=== PATIENT | male | born 1980 | race Hispanic/Latino ===

== ENCOUNTER 2023-12-15 13:12 | Emergency (ER) | payer BC, OTHER ==
[~2023-12-15] VITALS: Ht 182.9 cm; Wt 98.4 kg
[2023-12-15 15:24] LABS: APPEARANCE,URINE CLEAR (CLEAR); BILIRUBIN,URINE NEGATIVE (NEGATIVE); COLOR,URINE LIGHT-YELLOW (YELLOW); GLUCOSE, URINE (UA) NEGATIVE (NEGATIVE); KETONES,URINE NEGATIVE (NEGATIVE); LEUKOCYTE ESTERASE ,URINE NEGATIVE Leu/uL (NEGATIVE); NITRATE,URINE NEGATIVE (NEGATIVE); OCCULT BLOOD,URINE NEGATIVE (NEGATIVE); PH,URINE 5.5 (5.0-8.0); PROTEIN,URINE NEGATIVE (NEGATIVE); UROBILINOGEN,URINE 0.2 mg/dL (0.2-1.0)
[2023-12-15 15:28] LABS: ADD UA MICROSCOPIC NO
[2023-12-15 15:43] LABS: BASOPHILS # (AUTO) 0.06 K/uL (0.00-0.20); BASOPHILS % (AUTO) 0.9 % (0.0-5.0); EOSINOPHILS # (AUTO) 0.12 K/uL (0.00-0.70); EOSINOPHILS % (AUTO) 1.8 % (0.0-8.0); IMMATURE GRANULOCYTE ABSOLUTE 0.02 K/uL (0-1); LYMPHOCYTES # (AUTO) 2.5 K/uL (1.0-4.8); LYMPHOCYTES % (AUTO) 37.6 % (21.0-51.0); MEAN CORPUSCULAR HEMOGLOBIN 30.1 pg (27.0-33.0); MEAN CORPUSCULAR HGB CONC 35.7 g/dL (32.0-36.0); MEAN CORPUSCULAR VOLUME 84.2 fL (79-99); MONOCYTES # (AUTO) 0.6 K/uL (0.1-1.0); MONOCYTES % (AUTO) 9.4 % (3.0-13.0); NEUTROPHILS # (AUTO) 3.4 K/uL (1.8-7.7); PLATELET COUNT (AUTO) 297 K/uL (130-400); RED BLOOD CELL COUNT(AUTO) 5.58 MIL/uL (4.50-6.20); RED CELL DISTRIBUTION WIDTH 12.9 % (11.0-15.5); WHITE BLOOD COUNT (AUTO) 6.7 K/uL (4.8-10.8)
[2023-12-15 15:55] LABS: POTASSIUM 4.5 mmol/L (3.5-5.1)
[2023-12-15 15:59] LABS: ALBUMIN 3.9 g/dL (3.5-5.0); BILIRUBIN,TOTAL 2.8 mg/dL (0.2-1.0); TOTAL PROTEIN, SERUM 7.4 g/dL (6.0-8.3)
[2023-12-15 16:43] VITALS: BP 131/75; PULSE 57; RESP 17; O2SAT 100
[2023-12-15] MEDS ORDERED: CYCL10TA16 PO (16:48)
[2023-12-15] MEDS ORDERED: IBUP-2070 PO (16:48)
[2023-12-15] MEDS: KETOROLAC 60 MG VIAL (30MG/ML) IM ONE (17:00)
[2023-12-15] MEDS: ORPHENADRINE CITRATE 30 MG/ML ML IM ONE (17:00)
== END 2023-12-15 17:15 | disposition home or self-care (01) ==
LOC: EDH 13:12
DX: S39.012A Strain of muscle, fascia and tendon of lower back, initial encounter (principal); X58.XXXA Exposure to other specified factors, initial encounter; Y93.89 Activity, other specified; Y92.89 Other specified places as the place of occurrence of the external cause; Y99.8 Other external cause status
CPT/HCPCS: 99284; 74176; 80053; 83690; 85025; 81003; 36415; 96372 ×2; J1885; J2360

== ENCOUNTER 2024-09-26 17:43 | Emergency (ER) | payer BC ==
[~2024-09-26] VITALS: Ht 180.3 cm; Wt 98.4 kg
[~2024-09-26 17:43] MED LIST: CYCL10TA16 PO; IBUP-2070 PO
[2024-09-26 18:13] VITALS: BP 164/110; PULSE 106; RESP 20; TEMP 98.4
[2024-09-26] MEDS ORDERED: FAMOTIDINE 20MG VIAL IV STA (18:42)
[2024-09-26] MEDS ORDERED: ketOROlac 15MG/ML VIAL (15MG/ML) IV STA (18:42)
[2024-09-26 19:10] LABS: BASOPHILS # (AUTO) 0.05 K/uL (0.00-0.20); BASOPHILS % (AUTO) 0.6 % (0.0-5.0); EOSINOPHILS # (AUTO) 0.16 K/uL (0.00-0.70); EOSINOPHILS % (AUTO) 2.1 % (0.0-8.0); HEMATOCRIT 48.3 % (42-54); IMMATURE GRANULOCYTE ABSOLUTE 0.03 K/uL (0-1); LYMPHOCYTES # (AUTO) 2.3 K/uL (1.0-4.8); MEAN CORPUSCULAR HEMOGLOBIN 29.7 pg (27.0-33.0); MEAN CORPUSCULAR HGB CONC 34.4 g/dL (32.0-36.0); MEAN CORPUSCULAR VOLUME 86.6 fL (79-99); MONOCYTES # (AUTO) 0.6 K/uL (0.1-1.0); MONOCYTES % (AUTO) 7.2 % (3.0-13.0); NEUTROPHILS # (AUTO) 4.7 K/uL (1.8-7.7); NEUTROPHILS % (AUTO) 60.7 % (40.0-77.0); PLATELET COUNT (AUTO) 277 K/uL (130-400); RED BLOOD CELL COUNT(AUTO) 5.58 MIL/uL (4.50-6.20); RED CELL DISTRIBUTION WIDTH 12.8 % (11.0-15.5); WHITE BLOOD COUNT (AUTO) 7.8 K/uL (4.8-10.8)
[2024-09-26 19:16] LABS: POTASSIUM 3.7 mmol/L (3.5-5.1)
[2024-09-26 19:30] LABS: B-TYPE NATRIURETIC PEPTIDE 10 pg/mL (0-100)
--- NOTE | 2024-09-26 19:39 | HMCIMG ---
CHEST 1VW HISTORY: Chest pain COMPARISON: None FINDINGS: A frontal projection of the chest was obtained. No acute pulmonary infiltrates is seen. The heart is borderline enlarged. Prominent interstitial markings are seen. Degenerative changes are seen. No evidence of aortic calcification is seen. IMPRESSION: 1. No acute pulmonary infiltrate is seen.
--- NOTE | 2024-09-26 21:01 | ERN ---
ED Note History of Present Illness Stated Complaint: ANXIETY CP Chief Complaint: Chest Pain Time Seen by MD: 17:45 Time Seen by Midlevel: 17:50 Dictation: 43-year-old male with a history of anxiety coming in complaining of chest pain/tightness intermittently for the last three days. Also states he has had a cough recently. Patient states he does not know if this is cardiac related or could be his anxiety. States sometimes when he exercises he feels better thinks it is because his mind is not thinking about the chest pain. Patient denies any illicit drug use, or drinking. Denies having any shortness of breath, back pain, nausea, vomiting. Allergies: Coded Allergies: No Known Allergies (Verified Allergy, Unknown, 12/15/23) Home Meds Active Scripts Cyclobenzaprine HCl (Flexeril) 10 Mg Tab, 10 MG PO TID, #9 TAB Prov:ANNY RENEE [employer] 12/15/23 Ibuprofen (Ibuprofen) 600 Mg Tablet, 600 MG PO Q6H PRN for PAIN, #30 TAB Prov:ANNY RENEE [employer] 12/15/23 Past Medical History Past Medical History: Anxiety, Hypertension Surgical History: Appendectomy Review of System Dictation Constitutional: Negative for fever,chills, and weight loss Eyes: Negative for injury, pain,redness, and discharge ENT: Negative for injury,pain or swelling Cardiovascular: Positive for chest pain, no palpitations, no edema Respiratory: Complaining of cough Abdomen/GI: Negative for abdominal pain, nausea, vomiting, diarrhea, and constipation Back: Negative for injury and pain : Negative for injury, bleeding and discharge MS/Extremity: Negative for injury and deformity Skin: Negative for rash, and discoloration Neuro: Negative for headache, weakness, numbness, tingling, and seizure Psych: Negative for suicide ideation, homicidal ideation, and hallucinations Review of Systems: was completed Initial Vital Sign VS Vital Signs Date Time Temp Pulse Resp B/P (MAP) Pulse Ox O2 Delivery O2 Flow Rate FiO2 09/26/24 18:13 98.4 106 20 164/110 99 Room Air 0 Physical Exam Dictation General: awake, alert, NAD Head/Face: Normocephalic, atraumatic Eyes: PERRL, EOMI, vision at baseline ENT: oral cavity clear, TMs clear, no signs of infection Neck: Trachea midline, supple, no nuchal rigidity Cardiovascular: RRR, normal S1/S2, No MRGs, no JVD Respiratory: CTAB, no respiratory distress, No rales or wheezes Abdomen: Soft, non-tender, non-distended, normal bowel sounds, no guarding or rebound. Skin: Warm, dry, normal turgor, no rash MS/Extremity: Pulses equal, no cyanosis, neurovascular intact, FROM Neuro: COAx4, GCS 15, strength 5/5, CN 2-12 intact, normal cerebellar exam, normal gait, Psych: Normal behavior, mood, and affect normal Results (Laboratory/Radiology) Laboratory/Radiology Laboratory Tests Test 09/26/24 18:50 09/26/24 19:12 White Blood Count 7.8 K/uL (4.8-10.8) Red Blood Count 5.58 MIL/uL (4.50-6.20) Hemoglobin 16.6 g/dL (14.0-18.0) Hematocrit 48.3 % (42-54) Mean Corpuscular Volume 86.6 fL (79-99) Mean Corpuscular Hemoglobin 29.7 pg (27.0-33.0) Mean Corpuscular Hemoglobin Concent 34.4 g/dL (32.0-36.0) Red Cell Distribution Width 12.8 % (11.0-15.5) Platelet Count 277 K/uL (130-400) Mean Platelet Volume 9.7 fL (7.5-10.5) Immature Granulocyte % (Auto) 0.4 % (0-1) Neutrophils (%) (Auto) 60.7 % (40.0-77.0) Lymphocytes (%) (Auto) 29.0 % (21.0-51.0) Monocytes (%) (Auto) 7.2 % (3.0-13.0) Eosinophils (%) (Auto) 2.1 % (0.0-8.0) Basophils (%) (Auto) 0.6 % (0.0-5.0) Neutrophils # (Auto) 4.7 K/uL (1.8-7.7) Lymphocytes # (Auto) 2.3 K/uL (1.0-4.8) Monocytes # (Auto) 0.6 K/uL (0.1-1.0) Eosinophils # (Auto) 0.16 K/uL (0.00-0.70) Basophils # (Auto) 0.05 K/uL (0.00-0.20) Absolute Immature Granulocyte (auto 0.03 K/uL (0-1) Nucleated Red Blood Cells 0.0 % (0.0-0.19) Sodium Level 139 mmol/L (136-145) Potassium Level 3.7 mmol/L (3.5-5.1) Chloride Level 102 mmol/L (101-111) Carbon Dioxide Level 27 mmol/L (21-32) Blood Urea Nitrogen 15 mg/dL (7-18) Creatinine 1.0 mg/dL (0.5-1.3) Glomerular Filtration Rate Calc 95 mL/min (>90) Random Glucose 110 mg/dL (70-105) H Total Calcium 9.2 mg/dL (8.5-10.1) Total Creatine Kinase 176 U/L (21-232) Troponin I High Sensitivity < 4 ng/L (4-75) L B-Type Natriuretic Peptide 10 pg/mL (0-100) Troponin I < 0.05 ng/mL (0.00-0.05) Labs Reviewed?: Yes EKG Comment: EKGs done at 6:11 p.m., sinus rhythm, S1, S2, S3 pattern, ST elevation, probable normal early repolarization pattern. Rate of 89. No STEMI interpreted by ER MD. X-RAY Comment: [address] [id number] IMAGING REPORT Signed PATIENT: KISHA CROOKS MR#: [id number] : 1980 SEX: M AGE: 43 LOCATION: ED ORDER 12 STATUS: REG ER REPORT#: [id number] SERVICE 11 REASON: CHEST PAIN ORDERING PHYSICIAN: THOMAS MANRIQUE MD PROCEDURE: CXR1VW - CHEST 1VW CHEST 1VW HISTORY: Chest pain COMPARISON: None FINDINGS: A frontal projection of the chest was obtained. No acute pulmonary infiltrates is seen. The heart is borderline enlarged. Prominent interstitial markings are seen. Degenerative changes are seen. No evidence of aortic calcification is seen. IMPRESSION: 1. No acute pulmonary infiltrate is seen. DICTATED BY: LINDA LEAHY MD DATE: 09/26/241935 ELECTRONICALLY SIGNED BY: LINDA LEAHY MD DATE: 09/26/241938 ED Course ED Course Orders Procedure Category Date Status Time Vital Signs Per CPOE 09/26/24 Transmitted Routine 18:12 B-Type Natriuretic LAB 09/26/24 Complete Peptide 18:12 Chest 1vw RAD 09/26/24 Resulted 18:12 12 Lead Ekg Tracing- EKG 09/26/24 Logged Technical 18:12 Oxygen By Nc/Pulse Ox CPOE 09/26/24 Transmitted 18:12 Maintain Iv CPOE 09/26/24 Transmitted 18:12 Iv Insertion CPOE 09/26/24 Transmitted 18:12 Cardiac Monitoring CPOE 09/26/24 Transmitted 18:12 Pulse Oximetry With CPOE 09/26/24 Transmitted Vs And Prn 18:12 Cbc With Differential LAB 09/26/24 Complete 18:12 Activity: Br W/Brp CPOE 09/26/24 Transmitted With Assist 18:12 Creatine Kinase, Total LAB 09/26/24 Complete 18:12 Urinalysis Profile LAB 09/26/24 Logged 18:12 Troponin Poc Order LAB 09/26/24 Complete Only 18:12 Bedside Troponin-I LAB.ER 09/26/24 In Process (Poc) 18:12 Basic Metabolic Panel LAB 09/26/24 Complete 18:12 Troponin I High LAB 09/26/24 Complete Sensitivity 18:42 Ketorolac PHA 09/26/24 Complete Tromethamine 15mg/Ml 18:42 Famotidine 20mg Vial PHA 09/26/24 Complete (Pepcid 20mg Vial) 18:42 Current Medications Medications (Trade) Dose Ordered Sig/Phuc Route PRN Reason Start Time Stop Time Status Last Admin Dose Admin Famotidine (Pepcid 20mg Vial) 20 mg ONCE STAT IV 09/26/24 18:42 09/26/24 18:44 DC Ketorolac Tromethamine (toRADol) 15 mg ONCE STAT IV 09/26/24 18:42 09/26/24 18:44 DC Vital Signs Date Time Temp Pulse Resp B/P (MAP) Pulse Ox O2 Delivery O2 Flow Rate FiO2 09/26/24 18:13 98.4 106 20 164/110 99 Room Air 0 HEART Score Response (Comments) Value History: Low suspicion (0) 0 EKG: Normal 0 Age: < 45yrs (0) 0 Risk Factors: No known risk factors (0) 0 Initial Troponin: Normal limit (0) 0 Total 0 Medical Decision Making MDM MDM: 43-year-old male with a history of anxiety coming in complaining of chest pain/tightness intermittently for the last three days. Also states he has had a cough recently. Patient states he does not know if this is cardiac related or could be his anxiety. States sometimes when he exercises he feels better thinks it is because his mind is not thinking about the chest pain. Patient denies any illicit drug use, or drinking. Denies having any shortness of breath, back pain, nausea, vomiting.CBC shows no leukocytosis, no anemia, no thrombocytopenia. Chemistry shows no electrolyte abnormality, normal kidney function, creatinine is normal. CK is normal, troponin is negative. BNP is within normal limits. EKGs showed sinus rhythm, S1, S2, S3 pattern, ST elevation probably normal early repolarization pattern. Chest x-ray shows no acute pulmonary infiltrates. Heart score is 0. Discussed findings with the patient, educated patient that this is more likely not cardiac related. However educated to follow up with PCP for further evaluation. Patient verbalized understanding, answered all questions. Differential diagnosis: ACS, pneumonia, costochondritis, anxiety Rationale: Tests considered and ordered secondary to shared decision making include: Previous outside records reviewed: Old ER visits. Risk of complication and/or morbidity or mortality of patient management: None Medications-Per medication reconciliation Need for hospitalization: Patient does not meet criteria for hospitalization. Need for emergency major/minor surgery: No There are no social concerns with this patient. Prescription drug management Prescriptions will include symptomatic care Patient's prior external medical records from other ER visits were reviewed by me as indicated. Prior testing and results from previous visits were reviewed. Prior tests were taken into account with medical decision making and resource utilization, independent historian/historians were used to obtain complete medical history. I independently interpreted the test that were performed, results were reviewed by me and considered findings on radiology if ordered. Medical management and examination interpretation discussions were had by me with other qualified healthcare professionals as indicated for the patient's care. DX & DISP Disposition: Discharge Departure Impression: Primary Impression: Atypical chest pain Condition: Stable Additional Instructions: Please follow up with the primary doctor for further evaluation. If your symptoms worsen please return to the emergency room. Referrals: JONATHAN MELISSA MD (PCP) Time of Disposition: 21:00 I have reviewed the case, and I agree with, Diagnosis and Plan PETTY TSANG NP Sep 26, 2024 21:01
[2024-09-26] MEDS: ketOROlac 15MG/ML VIAL (15MG/ML) IM ONE (21:19)
--- NOTE | 2024-09-27 07:04 | EKG ---
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
== END 2024-09-26 21:20 | disposition home or self-care (01) ==
LOC: EDH 17:43
DX: R07.89 Other chest pain (principal); F41.9 Anxiety disorder, unspecified; I10 Essential (primary) hypertension; Z90.49 Acquired absence of other specified parts of digestive tract
CPT/HCPCS: 99284; 71045; 82550; 84484 ×2; 80048; 83880; 85025; 36415; 96372; 93005; J1885